=== PATIENT | male | born 1980 | race African-American/Black ===

== ENCOUNTER 2024-06-23 18:09 | Emergency (ER) | payer BC, OTHER ==
[~2024-06-23] VITALS: Ht 182.9 cm; Wt 87.0 kg
[2024-06-23 18:12] VITALS: O2SAT 100
[2024-06-23] MEDS ORDERED: DIPHENHYDRAMINE 50MG CAPSULE PO ONE (19:00)
[2024-06-23] MEDS: DIPHENHYDRAMINE 25MG CAPSULE PO NR (19:18)
[2024-06-23 19:29] VITALS: BP 156/94; PULSE 78; RESP 16; TEMP 36.6; O2SAT 100
== END 2024-06-23 19:30 | disposition home or self-care (01) ==
LOC: ER 18:09
DX: F41.0 Panic disorder [episodic paroxysmal anxiety] (principal); I10 Essential (primary) hypertension
CPT/HCPCS: 99283; Q0163